=== PATIENT | male | born 1985 | race Hispanic/Latino ===

== ENCOUNTER 2023-03-30 05:58 | Day surgery (SDC) | payer OTHER ==
[2023-03-28 14:09] LABS: BASOPHILS % (AUTO) 0.7 % (0.0-5.0); EOSINOPHILS % (AUTO) 4.7 % (0.0-8.0); HEMATOCRIT 44.7 % (42-54); LYMPHOCYTES % (AUTO) 29.5 % (21.0-51.0); MEAN CORPUSCULAR HEMOGLOBIN 31.1 pg (27.0-33.0); MEAN CORPUSCULAR HGB CONC 34.2 g/dL (32.0-36.0); MEAN CORPUSCULAR VOLUME 90.9 fL (79-99); MONOCYTES % (AUTO) 7.8 % (3.0-13.0); NEUTROPHILS % (AUTO) 56.8 % (40.0-77.0); PLATELET COUNT (AUTO) 225 K/uL (130-400); RED BLOOD CELL COUNT(AUTO) 4.92 MIL/uL (4.50-6.20); RED CELL DISTRIBUTION WIDTH 12.5 % (11.0-15.5); WHITE BLOOD COUNT (AUTO) 8.6 K/uL (4.8-10.8)
[2023-03-28 14:29] LABS: CARBON DIOXIDE 29 mmol/L (21-32); CHLORIDE 104 mmol/L (101-111); CREATININE 0.9 mg/dL (0.5-1.5); GLOMERULAR FILTR. RATE CALC 114 mL/min (>90); GLUCOSE,RANDOM 102 mg/dL (70-105); POTASSIUM 4.1 mmol/L (3.5-5.1); SODIUM SERUM 141 mmol/L (136-145); UREA NITROGEN, BLOOD 17 mg/dL (7-18)
[2023-03-28 14:30] LABS: CRP QUANTITATIVE < 2.00 mg/L (0.00-9.0)
[2023-03-28 14:36] VITALS: BP 138/89
[~2023-03-30] VITALS: Ht 175.3 cm; Wt 97.0 kg
[2023-03-30] VITALS (18 sets, daily range): BP systolic 98–138; BP diastolic 61–86
[~2023-03-30 05:58] MED LIST: LOSA50TA64 PO
[2023-03-30] MEDS ORDERED: LACTATED RINGERS 1000ML 1,000 ML IV ONE (06:42)
[2023-03-30] MEDS: CEFAZOLIN SODIUM 2 GM VIAL ONE ×2 (06:56→07:45)
[2023-03-30] MEDS ORDERED: LIDOCAINE PF 100MG/5ML (2%) SYRINGE 5ML ONE (07:29)
[2023-03-30] MEDS ORDERED: FENTANYL CITRATE PF 50 MCG/1 ML 2ML VIAL ONE ×2 (07:30→08:25)
[2023-03-30] MEDS ORDERED: MIDAZOLAM HCL 1 MG/ML 2ML VIAL ONE (07:30)
[2023-03-30] MEDS ORDERED: PROPOFOL 10 MG/ML 20ML VIAL IV ONE (07:30)
[2023-03-30] MEDS ORDERED: KETOROLAC 30MG VIAL (30MG/ML) ONE (07:54)
[2023-03-30] MEDS ORDERED: DEXAMETHASONE SOD PHOSPHATE 10MG/ML 1ML VIAL ONE (07:55)
[2023-03-30] MEDS ORDERED: ONDANSETRON 4MG INJ ONE (07:55)
[2023-03-30] MEDS ORDERED: BUPIVACAINE/PF 0.25% 30ML VIAL IJ ONE (08:08)
[2023-03-30] MEDS ORDERED: ACET-2079 PO (08:47)
== END 2023-03-30 10:45 | disposition home or self-care (01) ==
LOC: DAH 05:58
PROVIDERS: ATTEND Student in an Organized Health Care Education/Training Program
DX: S83.271A Complex tear of lateral meniscus, current injury, right knee, initial encounter (principal); Z20.822 Contact with and (suspected) exposure to COVID-19; M94.261 Chondromalacia, right knee; M79.4 Hypertrophy of (infrapatellar) fat pad; I10 Essential (primary) hypertension; X50.1XXA Overexertion from prolonged static or awkward postures, initial encounter; Y93.89 Activity, other specified; Y92.89 Other specified places as the place of occurrence of the external cause; Y99.8 Other external cause status
CPT/HCPCS: 82040; 80048; 85025; 84134; 86140; 87426; 36415; 29881; 97116; A4663; A4649 ×2; J7120; J3010 ×2; J1100; J3490; J2001; J2250; J2704; J2405; J1885; J0690; A6223; A5120; A4215; A4223; A4222; A4221; A6450